=== PATIENT | female | born 1980 | race Caucasian/White ===

== ENCOUNTER 2021-08-09 20:27 | Emergency (ER) | payer MEDICAID, OTHER, SELFPAY ==
[~2021-08-09] VITALS: Ht 157.5 cm; Wt 59.1 kg
[2021-08-09 20:40] VITALS: BP 131/67
== END 2021-08-09 22:09 | disposition home or self-care (01) ==
LOC: M ED 20:27 → EDBD 20:27 → M ED 22:09
DX: F16.10 Hallucinogen abuse, uncomplicated (principal); F43.0 Acute stress reaction; R44.3 Hallucinations, unspecified